=== PATIENT | female | born 1970 | race Caucasian/White ===

== ENCOUNTER 2018-07-29 08:49 | Emergency (ER) | payer OTHER ==
[~2018-07-29] VITALS: Ht 165.1 cm; Wt 64.5 kg
[~2018-07-29 08:49] MED LIST: LORTAB 5 OR
[2018-07-29] MEDS ORDERED: ADDERALL10 MG PO (09:06)
[2018-07-29] MEDS ORDERED: VIIBRYD10 MG PO (09:06)
[2018-07-29 09:58] LABS: HEMATOCRIT 45.9 % (37.0-47.0); HEMOGLOBIN 15.3 g/dl (12.0-16.0); IMMATURE GRANULOCYTES 0.2 % (0.0-5.0); MEAN CELL VOLUME 93.9 fL CALC (80.0-100.0); MEAN CORPUSCULAR HGB 31.3 pG CALC (26.0-32.0); MEAN CORPUSCULAR HGB CONC 33.3 g/L CALC (32.0-36.0); NEUT# 3.93 thou/uL (2.00-7.15); RED BLOOD COUNT 4.89 mill/uL (4.20-5.60); RED CELL DISTRI WIDTH 12.5 % (11.5-15.5)
[2018-07-29 10:20] LABS: ACT PARTIAL THROMBO TIME 30.9 SECONDS (20.0-32.5); D-DIMER 0.18 mg/L (0.19-0.60)
[2018-07-29 10:34] LABS: ALBUMIN 4.8 g/dL (3.2-5.0); ALKALINE PHOSPHATASE 77 u/l (38-126); ANION GAP 16 (6-22 (CALC)); BILIRUBIN, TOTAL 1.2 mg/dL (0.0-1.4); BUN 10 mg/dL (7-17); BUN/CREATININE RATIO 19 (12-20 (CALC)); CARBON DIOXIDE 27 mmol/l (22-30); CHLORIDE 105 mmol/l (95-108); CREATININE 0.5 mg/dL (0.5-1.0); GFR > 60 ML/MIN (>=60 (CALC)); GFR FOR AFR.AMER. > 60 ML/MIN (>=60 (CALC)); LIPASE 47 u/l (23-300); POTASSIUM 3.8 mmol/l (3.5-5.1); SGOT/AST 42 u/l (14-36); SODIUM 144 mmol/l (137-146)
[2018-07-29 12:53] VITALS: BP 131/74
== END 2018-07-29 13:01 | disposition home or self-care (01) | DRG 313 ==
LOC: ED 08:49
PROVIDERS: Emergency Medicine
DX: R07.9 Chest pain, unspecified (principal); R00.2 Palpitations; R00.0 Tachycardia, unspecified